=== PATIENT | female | born 1955 | race Caucasian/White ===

== ENCOUNTER 2019-09-19 07:12 | Inpatient (IN) | payer BC ==
[~2019-09-19] VITALS: Ht 165.1 cm; Wt 74.7 kg
[~2019-09-19 07:12] MED LIST: B Complex #11 EACH PO; BUSP10 PO; LEVSOD75 PO; MELA3 PO; OMEPRAZOLE MAGN20 MG PO; SERT100 PO
--- NOTE | 2019-09-19 09:25 | NUR ---
09/19/19 0925 Zahira Pressley 20ML NORMAL SALINE W/INDIGO CARMINE TO RAISE CECAL POLYP
--- NOTE | 2019-09-19 10:42 | NUR ---
09/19/19 1042 Zahira Pressley LATE ENTRY FOR TODAY AT 0925 PATIENT C/O PAIN, STATES THAT SHE NEEDS TO "PEE". BED [place] PLACED UNDER PATIENT. PATIENT UNABLE TO URINATE. DR. ESPAÑA AWARE. WILL CONTINUE TO MONITOR AND TAKE PATIENT BACK TO ROOM. DR. ESPAÑA INTO SPEAK WITH PATIENT. PATIENT C/O ABDOMINAL PAIN, ABDOMEN IS PAINFUL TO TOUCH. DR. ESPAÑA WILL ORDER STAT CT SCAN.
[2019-09-19] MEDS ORDERED: SERT100 PO (11:44)
--- NOTE | 2019-09-19 11:59 | NUR ---
ADMIT NOTE- PT ADMITTED TO PCU 12 FROM SURGERY CENTER IN WHEELCHAIR, ALERT, ORIENTED, COOPERATIVE, NO DISTRESS. STATES ABDOMEN DISCOMFORT PRESENT-RATES 1 ON SCALE. NO N/V. TAKING CLEAR LIQUIDS. SINUS WILL, BP STABLE. PIV INTACT. GIANFRANCO HATHAWAY RADIO MAINTAINER HERE. REVIEWED PLAN WITH PT. REVIEWED PICTURE OF POLST, FRIEND TO BRING IN. PT STATES DNR WITH LIMITED TREATMENT.
[2019-09-19 12:37] LABS: BASOPHILS ABSOLUTE AUTO 0.03 K/mm3 (0.00-0.23); BASOPHILS PERCENT AUTO 1 % (0-2); EOSINOPHILS ABSOLUTE AUTO 0.05 K/mm3 (0.00-0.68); EOSINOPHILS PERCENT AUTO 1 % (0-6); Hematocrit 37.5 % (33.0-51.0); Hemoglobin 12.8 g/dL (11.5-16.0); IMMATURE GRAN ABSOLUTE AUTO 0.02 K/mm3 (0.00-0.10); IMMATURE GRAN PERCENT AUTO 0 % (0-1); LYMPHOCYTES PERCENT AUTO 12 % (21-46); MONOCYTES ABSOLUTE AUTO 0.35 K/mm3 (0.16-1.47); MONOCYTES PERCENT AUTO 5 % (4-13); Mean Corpuscular HGB 31.7 pg (26.0-34.0); Mean Corpuscular HGB Conc 34.1 g/dL (31.5-36.5); Mean Corpuscular Volume 93 fL (80-100); Mean Platelet Volume 9.2 fL (9.1-12.4); NEUTROPHILS ABSOLUTE AUTO 5.41 K/mm3 (1.96-9.15); NEUTROPHILS PERCENT AUTO 81 % (41-73); Platelet Count 299 K/mm3 (150-400); RDW Coefficient Variation 12.8 % (11.7-14.2); RDW Standard Deviation 43.9 fL (35.1-46.3); Red Blood Cell Count 4.04 M/mm3 (3.80-5.20); White Blood Cell Count 6.66 K/mm3 (4.00-11.30)
--- NOTE | 2019-09-19 12:37 | NUR ---
PT WITH STABLE VSS. DENIES COMPLAINTS.
[2019-09-19 12:51] LABS: International Normalized Ratio 1.04; Prothrombin Time Results 11.1 Sec (9.7-11.5)
[2019-09-19 13:00] LABS: Alanine Aminotransfer (ALT/SGP 20 U/L (12-78); Albumin, Blood 3.6 g/dL (3.4-5.0); Albumin/Globulin Ratio 1.2 (0.8-1.8); Alk Phos 64 U/L (50-136); Anion Gap 8 mmol/L (6-16); Aspartate Aminotrans (AST/SGOT 10 U/L (12-37); Bilirubin, Total 0.9 mg/dL (0.1-1.0); Blood Urea Nitrogen 10 mg/dL (8-24); CO2, Blood 23 mmol/L (21-32); Calcium, Blood 8.4 mg/dL (8.5-10.1); Chloride, Blood 105 mmol/L (98-108); Creatinine, Blood 0.77 mg/dL (0.40-1.00); Glomerular Filtration Rate >60 (60-); Glucose, Blood 79 mg/dL (70-99); Potassium, Blood 3.9 mmol/L (3.5-5.5); Sodium, Blood 136 mmol/L (136-145); Total Protein, Blood 6.6 g/dL (6.4-8.2)
--- NOTE | 2019-09-19 14:08 | NUR ---
PT STATES JUST MIMINAL DISCOMFORT RIGHT ABDOMEN NOW-STATES NOT "EVEN A PAIN". DOZING, WATCHING TV
--- NOTE | 2019-09-19 14:28 | NUR ---
PERMISSION FOR CARE PATIENT GAVE STUDENT PERMISSION TO PROVIDE CARE ON 09/19/19.
--- NOTE | 2019-09-19 16:06 | NUR ---
PT UP TO BATHROOM, MORE PAIN AFTER ACTIVITY. ABDOMEN SOFT, NONTENDER WITH BOWEL SOUNDS. C/O GAS PAINS, RX GIVEN. NPO NOW, WILL CONTINUE TO MONITOR
--- NOTE | 2019-09-19 16:18 | NUR ---
PT INSISTENT TO GO OUTSIDE TO SMOKE. SURGICAL STATUS. IV DISCONNECTED
--- NOTE | 2019-09-19 16:45 | NUR ---
PT RETURN TO ROOM WITHOUT PROBLEMS. STATES FEELS BETTER -LESS ANXIOUS, STATES WAS ABLE TO BELCH. ABDOMEN REMAINS SOFT, NONTENDER TO TOUCH. NO N/V. NPO-TAKING SMALL AMOUNT ICE CHIPS. PIV INTACT
--- NOTE | 2019-09-19 18:31 | NUR ---
DR. ESPAÑA HERE-ASSESSED PT. CONTINUE TO MONITOR TONIGHT. DENIES PROBLEMS.
--- NOTE | 2019-09-19 19:45 | NUR ---
RECEIVED REPORT FROM SABIHA DEAN. ASSUMED CARE OF PT. IN NO ACUTE DISTRESS. RESTING IN BED COMFORTABLY AT THIS TIME. DENIES ANY PAIN OR NEEDS AT THIS TIME. WILL CONTINUE TO MONITOR.
--- NOTE | 2019-09-20 01:00 | NUR ---
PT REQUESTING TO GO OUTSIDE TO SMOKE. PT SIGNED WAIVER FORM AND IS AWARE OF RISKS OF GOING OUTSIDE WITHOUT SUPERVISION. INDICATED UNDERSTANDING.
--- NOTE | 2019-09-20 04:00 | NUR ---
PT OUTSIDE TO SMOKE.
[2019-09-20 04:13] LABS: BASOPHILS ABSOLUTE AUTO 0.03 K/mm3 (0.00-0.23); BASOPHILS PERCENT AUTO 0 % (0-2); EOSINOPHILS ABSOLUTE AUTO 0.08 K/mm3 (0.00-0.68); EOSINOPHILS PERCENT AUTO 1 % (0-6); Hematocrit 36.9 % (33.0-51.0); Hemoglobin 12.5 g/dL (11.5-16.0); IMMATURE GRAN ABSOLUTE AUTO 0.03 K/mm3 (0.00-0.10); IMMATURE GRAN PERCENT AUTO 0 % (0-1); LYMPHOCYTES ABSOLUTE AUTO 1.34 K/mm3 (0.84-5.20); LYMPHOCYTES PERCENT AUTO 19 % (21-46); MONOCYTES ABSOLUTE AUTO 0.52 K/mm3 (0.16-1.47); MONOCYTES PERCENT AUTO 7 % (4-13); Mean Corpuscular HGB 31.8 pg (26.0-34.0); Mean Corpuscular HGB Conc 33.9 g/dL (31.5-36.5); Mean Corpuscular Volume 94 fL (80-100); Mean Platelet Volume 9.2 fL (9.1-12.4); NEUTROPHILS ABSOLUTE AUTO 5.22 K/mm3 (1.96-9.15); NEUTROPHILS PERCENT AUTO 72 % (41-73); Platelet Count 289 K/mm3 (150-400); RDW Coefficient Variation 12.7 % (11.7-14.2); RDW Standard Deviation 44.1 fL (35.1-46.3); Red Blood Cell Count 3.93 M/mm3 (3.80-5.20); White Blood Cell Count 7.22 K/mm3 (4.00-11.30)
[2019-09-20 04:31] LABS: Alanine Aminotransfer (ALT/SGP 18 U/L (12-78); Albumin, Blood 3.4 g/dL (3.4-5.0); Albumin/Globulin Ratio 1.1 (0.8-1.8); Alk Phos 62 U/L (50-136); Anion Gap 9 mmol/L (6-16); Aspartate Aminotrans (AST/SGOT 13 U/L (12-37); Bilirubin, Total 1.8 mg/dL (0.1-1.0); Blood Urea Nitrogen 9 mg/dL (8-24); Bun/Creatinine Ratio 10.1 (12.0-20.0); CO2, Blood 21 mmol/L (21-32); Calcium, Blood 8.4 mg/dL (8.5-10.1); Chloride, Blood 109 mmol/L (98-108); Creatinine, Blood 0.89 mg/dL (0.40-1.00); Globulin, Blood 3.1 g/dL (2.2-4.0); Glomerular Filtration Rate >60 (60-); Glucose, Blood 69 mg/dL (70-99); Magnesium, Blood 1.7 mg/dL (1.6-2.4); Potassium, Blood 3.8 mmol/L (3.5-5.5); Sodium, Blood 139 mmol/L (136-145); Total Protein, Blood 6.5 g/dL (6.4-8.2)
--- NOTE | 2019-09-20 05:30 | NUR ---
PT BACK IN ROOM AT THIS TIME. RESTING COMFORTABLY.
--- NOTE | 2019-09-20 07:20 | NUR ---
PT RESTING IN BED COMFORTABLY, IN NO ACUTE DISTRESS. WAS MONITORED EVERY 1-2 HOURS WITH NEEDS MET. DENIES ANY NEEDS AT THIS TIME. CALL LIGHT AND POSSESSIONS IN REACH, BED IN LOW POSITION.
--- NOTE | 2019-09-20 09:55 | NUR ---
TRANSFER TO SURGICAL ROOM 228 PATIENT ALERT AND ORIENTED X4. RESP E/U ON ROOM AIR. PATIENT AMBULATES HALLS WELL AND INDEPENDENTLY. PATIENT DENIES ANY ABD PAIN. VSS. REPORTED TO OLIVIA COURTROOM REPORTER. PATIENT TRANSFERED FROM PCU 12 TO ROOM SURGICAL 228 AT 0900. AMBULATED OVER, BELONGINGS SENT WITH PATIENT.
--- NOTE | 2019-09-20 15:13 | NUR ---
SEVERE ABDOMINAL PAIN ENTERED ROOM AND FOUND PT GASPING IN PAIN. MEDICATED PER ORDERS W/25MCG FENTANYL WITH NO RELIEF. SAW DR TRACY IN [place] AND ASKED HIM TO ASSESS PT. ADMINISTERED ANOTHER 25 MCG FENTANYL PER ORDERS PT WAS WRITHING AND YELLING IN PAIN. PAIN BRIEFLY EASED TO 11/24. CONTACTED DR MADRIGAL WHO CAME TO ASSESS PT. PT HAD TENDERNESS IN ONE FOCAL AREA OF ABDOMEN. PT'S ABDOMEN FIRM. CT ORDERED STAT. PT'S PAIN RETURNED TO 04/26, ADMINISTERED ANOTHER 50 MCG FENTANYL PER ORDERS AND PLACED MSG OUT TO DR MADRIGAL. PT NOW IN CT.
[2019-09-20 15:35] LABS: BASOPHILS ABSOLUTE AUTO 0.02 K/mm3 (0.00-0.23); BASOPHILS PERCENT AUTO 0 % (0-2); EOSINOPHILS ABSOLUTE AUTO 0.11 K/mm3 (0.00-0.68); EOSINOPHILS PERCENT AUTO 2 % (0-6); Hematocrit 36.6 % (33.0-51.0); Hemoglobin 12.4 g/dL (11.5-16.0); IMMATURE GRAN ABSOLUTE AUTO 0.01 K/mm3 (0.00-0.10); IMMATURE GRAN PERCENT AUTO 0 % (0-1); LYMPHOCYTES ABSOLUTE AUTO 1.47 K/mm3 (0.84-5.20); LYMPHOCYTES PERCENT AUTO 22 % (21-46); MONOCYTES ABSOLUTE AUTO 0.48 K/mm3 (0.16-1.47); MONOCYTES PERCENT AUTO 7 % (4-13); Mean Corpuscular HGB 31.9 pg (26.0-34.0); Mean Corpuscular HGB Conc 33.9 g/dL (31.5-36.5); Mean Corpuscular Volume 94 fL (80-100); Mean Platelet Volume 9.3 fL (9.1-12.4); NEUTROPHILS ABSOLUTE AUTO 4.47 K/mm3 (1.96-9.15); NEUTROPHILS PERCENT AUTO 68 % (41-73); Platelet Count 286 K/mm3 (150-400); RDW Standard Deviation 44.6 fL (35.1-46.3); Red Blood Cell Count 3.89 M/mm3 (3.80-5.20); White Blood Cell Count 6.56 K/mm3 (4.00-11.30)
[2019-09-20 15:59] LABS: Alanine Aminotransfer (ALT/SGP 18 U/L (12-78); Albumin, Blood 3.5 g/dL (3.4-5.0); Albumin/Globulin Ratio 1.1 (0.8-1.8); Alk Phos 61 U/L (50-136); Anion Gap 8 mmol/L (6-16); Aspartate Aminotrans (AST/SGOT 14 U/L (12-37); Bilirubin, Total 1.5 mg/dL (0.1-1.0); Blood Urea Nitrogen 10 mg/dL (8-24); Bun/Creatinine Ratio 11.1 (12.0-20.0); CO2, Blood 21 mmol/L (21-32); Calcium, Blood 8.5 mg/dL (8.5-10.1); Chloride, Blood 110 mmol/L (98-108); Globulin, Blood 3.1 g/dL (2.2-4.0); Glomerular Filtration Rate >60 (60-); Glucose, Blood 86 mg/dL (70-99); Potassium, Blood 3.4 mmol/L (3.5-5.5); Sodium, Blood 139 mmol/L (136-145); Total Protein, Blood 6.6 g/dL (6.4-8.2)
--- NOTE | 2019-09-20 16:25 | NUR ---
pt to pre op
--- NOTE | 2019-09-20 16:25 | NUR ---
brother and sister in law took pt's purse per pt request.
--- NOTE | 2019-09-20 16:27 | NUR ---
INTO SDS. ELEVATED BP OTHER VITALS STABLE PATIEN TIN LOTS OF PAIN MOANING MOVING TURNING.
--- NOTE | 2019-09-20 20:10 | NUR ---
ARRIVE TO ICU 2 FORM OR PER BED. MONITOR PLACED SHOWING SINUS RHYTHM HEART RATE 90'S NONREBREATHER ND NASAL TRUMPET IN PLACE RESPIRATIONS 14/MIN SPO2 94% ABOMENIAL DRESSING INTACT MIDLINE LIANET DRAIN PATENT WITH SEROUS SANGOUS RETURN OF 60ML. AWAKENES TO VERBAL STIMULI ABLE TO FOLLOW COMMANDS . NASAL TUMPET REMOVED AT 2011. NON REBREATHER REMOVED AT 2029. SPPO2 MAINTAINING ABOVE 90% RESPRATIOONS REGULR AD EASY. CONTINUE TO MOITOR AND REPORT CHANGE IN PATIENT CONDITION
--- NOTE | 2019-09-20 21:07 | NUR ---
RESTS QUIETLY AWAKENS EASILY FOLLOWS COMMANDS . RESPIRATIONS EASY AND REGULAR ON ROOM AIR SPO2 94-97% ABD DRESSING DRY INTACT LIANET PATENT DRAINING S/S DUMONT WELL CONTINUE TO MONIITOR AND REPORT CHANGE IN PATIENT CONDITION
--- NOTE | 2019-09-20 21:15 | NUR ---
REPORT CALLED TO ANGELITO LANDIS ACCEPTING RN
--- NOTE | 2019-09-20 21:30 | NUR ---
PER BED TO ROOM 228. MONITOR INTACT SHOWING SINUS RHYTHM/SINUS WILL. HEART RATE 57-80'S. AROUSES TO VERBAL STIMULI. FOLLOWS COMMANDS. RESPIRATIONS REGULAR AND EASY ON ROOM AIR SPO2 GREATER THAN 90%. ABD DRESSING DRY/INTACT. LIANET PATENT WITH S/S/ RETURN . DUMONT WELL IN BED TOLERATED TRANSFER WELL
--- NOTE | 2019-09-20 22:07 | NUR ---
RECIEVED REPORT FROM CARROLL DISPLAY FABRICATION SUPERVISOR AT 2120 PT TO ROOM 213
--- NOTE | 2019-09-20 22:14 | NUR ---
RECIEVED PERMISSION FROM PT TO CALL DAUGHTER ALFA AND GIVE STATUS UPDATE. CALLED AT 0 AND SPOKE WITH ALFA.
--- NOTE | 2019-09-21 01:09 | NUR ---
DRESSING TO MIDLINE C/D/I HAD APPROX QUARTER SIZED BLOODY SPOT ON IT OTHERWISE NORMAL. LIANET DRAIN OBTAINED 40ML SEROSANGUINES FLUID. VSS. NO ACUTE CHANGES NOTED SINCE PT BROUGHT TO ROOM FROM SURG.
--- NOTE | 2019-09-21 01:37 | NUR ---
TANNING CONSULTANT SET UP AND PT EDUCATED ON USE.
[2019-09-21 04:34] LABS: BASOPHILS ABSOLUTE AUTO 0.02 K/mm3 (0.00-0.23); BASOPHILS PERCENT AUTO 0 % (0-2); EOSINOPHILS PERCENT AUTO 0 % (0-6); Hematocrit 37.4 % (33.0-51.0); Hemoglobin 12.7 g/dL (11.5-16.0); IMMATURE GRAN ABSOLUTE AUTO 0.03 K/mm3 (0.00-0.10); IMMATURE GRAN PERCENT AUTO 0 % (0-1); LYMPHOCYTES ABSOLUTE AUTO 0.23 K/mm3 (0.84-5.20); LYMPHOCYTES PERCENT AUTO 2 % (21-46); MONOCYTES ABSOLUTE AUTO 0.39 K/mm3 (0.16-1.47); MONOCYTES PERCENT AUTO 3 % (4-13); Mean Corpuscular HGB 31.9 pg (26.0-34.0); Mean Corpuscular Volume 94 fL (80-100); NEUTROPHILS ABSOLUTE AUTO 11.16 K/mm3 (1.96-9.15); NEUTROPHILS PERCENT AUTO 94 % (41-73); Platelet Count 289 K/mm3 (150-400); RDW Standard Deviation 44.9 fL (35.1-46.3); Red Blood Cell Count 3.98 M/mm3 (3.80-5.20); White Blood Cell Count 11.83 K/mm3 (4.00-11.30)
[2019-09-21 04:57] LABS: Anion Gap 11 mmol/L (6-16); Blood Urea Nitrogen 7 mg/dL (8-24); Bun/Creatinine Ratio 9.2 (12.0-20.0); CO2, Blood 19 mmol/L (21-32); Calcium, Blood 8.1 mg/dL (8.5-10.1); Chloride, Blood 108 mmol/L (98-108); Creatinine, Blood 0.76 mg/dL (0.40-1.00); Glomerular Filtration Rate >60 (60-); Glucose, Blood 125 mg/dL (70-99); Potassium, Blood 3.8 mmol/L (3.5-5.5); Sodium, Blood 138 mmol/L (136-145)
--- NOTE | 2019-09-21 07:32 | NUR ---
NOC SHIFT SUMMARY SEE PREVIOUS NOTES. PT IS AAOX4, RESP EVEN AND UNLABORED, PLEASANT AND COOPERATIVE. POST OP FOR BOWEL PERF REPAIR. PCI IN PLACE AND PT TAUGHT HOW TO USE. DRESSING REMAINS C/D/I. NO ACUTE CHANGES NOTED. REPORT TO ONCOMING RN.
--- NOTE | 2019-09-21 07:50 | NUR ---
dr tuttle by to see pt souza cath removed is/tcdb with demonstration pt also given chapstick for dry mouth and ice chips pt worried about taking in juice pt stated that pain is ok if she uses the farm management supervisor but when she dozes it gets bad pt has small amt serosang drainage to dressing midline denise wound vac absent bt's pt stomach was growling
--- NOTE | 2019-09-21 09:22 | NUR ---
meds given with sip of water no nausea with ice chips no urge to void yet
--- NOTE | 2019-09-21 10:45 | NUR ---
dr montes by to see pt
--- NOTE | 2019-09-21 12:01 | NUR ---
OOB TO BATHROOM TO VOID WITH STANDBY ASSIST BACK TO BED 50 MCG FENT GIVEN BEFOR FOR PAIN 02/23 IVP
--- NOTE | 2019-09-21 17:43 | NUR ---
OOB TO BATHROOM TO VOID AGAIN PT HAS DK SABIHA URINE ONLY TAKING SMALL AMTS OF ICE CHIPS DENIES NAUSEA
--- NOTE | 2019-09-21 19:00 | NUR ---
IVP FENT 25MCG FOR ADD PAIN CONTROL OVERALL PT STATED THIS HAS HELPED FIRST TWO DOSE WE USED 50 MCG VS 25 WE DID NEED TO USE 2 L NC
[2019-09-22 04:41] LABS: BASOPHILS ABSOLUTE AUTO 0.02 K/mm3 (0.00-0.23); BASOPHILS PERCENT AUTO 0 % (0-2); EOSINOPHILS ABSOLUTE AUTO 0.04 K/mm3 (0.00-0.68); EOSINOPHILS PERCENT AUTO 0 % (0-6); Hematocrit 35.4 % (33.0-51.0); Hemoglobin 11.6 g/dL (11.5-16.0); IMMATURE GRAN ABSOLUTE AUTO 0.02 K/mm3 (0.00-0.10); IMMATURE GRAN PERCENT AUTO 0 % (0-1); LYMPHOCYTES ABSOLUTE AUTO 0.77 K/mm3 (0.84-5.20); LYMPHOCYTES PERCENT AUTO 8 % (21-46); MONOCYTES ABSOLUTE AUTO 0.52 K/mm3 (0.16-1.47); MONOCYTES PERCENT AUTO 6 % (4-13); Mean Corpuscular HGB 31.1 pg (26.0-34.0); Mean Corpuscular HGB Conc 32.8 g/dL (31.5-36.5); Mean Corpuscular Volume 95 fL (80-100); Mean Platelet Volume 9.3 fL (9.1-12.4); NEUTROPHILS ABSOLUTE AUTO 7.94 K/mm3 (1.96-9.15); NEUTROPHILS PERCENT AUTO 85 % (41-73); Platelet Count 283 K/mm3 (150-400); RDW Coefficient Variation 13.2 % (11.7-14.2); Red Blood Cell Count 3.73 M/mm3 (3.80-5.20); White Blood Cell Count 9.31 K/mm3 (4.00-11.30)
[2019-09-22 05:00] LABS: Alanine Aminotransfer (ALT/SGP 16 U/L (12-78); Albumin, Blood 2.5 g/dL (3.4-5.0); Albumin/Globulin Ratio 0.7 (0.8-1.8); Alk Phos 48 U/L (50-136); Anion Gap 7 mmol/L (6-16); Aspartate Aminotrans (AST/SGOT 10 U/L (12-37); Bilirubin, Total 0.7 mg/dL (0.1-1.0); Blood Urea Nitrogen 9 mg/dL (8-24); Bun/Creatinine Ratio 12.1 (12.0-20.0); CO2, Blood 25 mmol/L (21-32); Calcium, Blood 8.2 mg/dL (8.5-10.1); Chloride, Blood 108 mmol/L (98-108); Creatinine, Blood 0.74 mg/dL (0.40-1.00); Globulin, Blood 3.5 g/dL (2.2-4.0); Glomerular Filtration Rate >60 (60-); Glucose, Blood 94 mg/dL (70-99); Potassium, Blood 3.9 mmol/L (3.5-5.5); Sodium, Blood 140 mmol/L (136-145)
--- NOTE | 2019-09-22 06:35 | NUR ---
SHIFT SUMMARY: AKHIL RESTED COMFORTABLY FOR THE MAJORITY OF THE NIGHT. SHE IS A ONE PERSON ASSIST TO THE BATHROOM. SHE DENIES ANY DIFFICULTY URINATING BUT DENIES HAVING PASSED FLATUS OR HAD A BM YET. SHE IS NPO, ONLY TAKING IN MEDICATIONS AND SMALL AMOUNTS OF ICE CHIPS. SHE IS ABLE TO MAKE HER NEEDS KNOWN. LIANET DRAIN PATENT, DRAINING SS FLUID. TELEMETRY IN PLACE. OXYGEN SATURATION MAINTAINING BETWEEN 90 AND 92% ORA THIS MORNING. DEEP BREATHING AND IS ENCOURAGED. SHE REPORTS THAT SHE DOES BREATHING EXERCISES AT HOME AND HAS BEEN DOING THEM WHILE LYING IN BED HERE. SHE USES HER CALL LIGHT APPROPRIATELY. 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 SHE IS LYING ON HER BACK IN BED STATING THAT IT HURTS TOO MUCH TO SIT UP. WILL REPORT TO ONCOMING RN.
--- NOTE | 2019-09-22 16:27 | NUR ---
SHIFT SUMMARY PT DOING BETTER THIS EVENING. FENTANYL WOODS RIDER DC'D TODAY AND PT STARTED ON ORAL OXYCODONE AND SCHEDULED TYLENOL. MEDICATED WITH 1X DOSE OF IVP FENTANYL FOR BREAKTHROUGH PAIN. PT REPORTS PAIN MORE TOLERABLE THIS EVENING. SLOWLY TOMMIE CLEAR LIQ DIET BUT HASN'T HAD MUCH OF AN APPETITE. PT DENIES PASSING GAS. BTS ARE PRESENT. MIDLINE INCISION REMAINS UNCHANGED SINCE START OF SHIFT. ENCOURAGING AND PLANNING TO AMBULATE THIS EVENING. UP TO RESTROOM 1 SBA. IVF + ABX INFUSING PER ORDERS. PT USING CALL LIGHT APPROPRIATELY.
--- NOTE | 2019-09-23 06:46 | NUR ---
SHIFT SUMMARY: AKHIL RESTED COMFORTABLY FOR MOST OF THE NIGHT. SHE DID HAVE AN EPISODE WHEN HER OXYGEN SATURATION DROPPED TO 88/89% ORA. SHE USED HER INCENTIVE SPIROMETER WELL DB&C WITHOUT IMPROVEMENT. O2 VIA NC WAS PLACED AT 1.5 LPM WHICH IMPROVED HER SATURATIONS TO 94%. SHE HAS BEEN TITRATED BACK TO ROOM AIR AT THIS TIME. CONTINUOUS PULSE OX IN PLACE. IV TO R AC PATENT. SHE REPORTS ADEQUATE PAIN CONTROL WITH ORAL PAIN MEDICATIONS. SHE IS ABLE TO MAKE HER NEEDS KNOWN. SHE IS LYING IN BED WITH HER CALL LIGHT IN REACH. WILL REPORT TO DAY SHIFT RN.
--- NOTE | 2019-09-23 14:50 | NUR ---
SUMMARY PT CONT TO DO WELL T/O SHIFT. ORAL PAIN MEDICATIONS NEEDED. ENCOURAGING AMBULATION. PT SLOWLY TOMMIE CLEAR LIQ DIET. DENIES PASSING GAS. MIDLINE JOESPH DRESSING REMAINS DRY AND INTACT. LIANET WITH YELLOW COLORED DRAINAGE. IVF PER ORDERS. PT REPORTS FEELING BETTER TODAY THAN SHE DID YESTERDAY. USES CALL LIGHT APPROPRIATELY.
--- NOTE | 2019-09-23 15:26 | NUR ---
ASSUMED CARE AT THIS TIME
--- NOTE | 2019-09-23 18:34 | NUR ---
SUMMARY: NO ACUTE CHANGE SINCE ASSUMED PT CARE. VSS, A/O. SURGICAL SITE WNL AND LIANET DRAIN EMPTIED X1. PT UP IN ROOM INDEPENDENTLY. PAIN SEEMS TO BE WELL MANAGED PER EMAR. NO SAFETY CONCERNS AT THIS TIME. WILL REPORT TO JONE LANDIS.
--- NOTE | 2019-09-24 06:45 | NUR ---
SHIFT SUMMARY PT A/OX4 WITH VSS. JOESPH TO MIDLINE IN PLACE WITH NO NEW DRAINAGE NOTED. LIANET DRAINING YELLOW FLUID WITH DRESSING C.D.I. PT IND IN ROOM. HAD 1 LARGE LIQUID BM. PAIN MANAGED WITH IV FENT AND REPOSITIONING. DENIES N/V AND TOLERATING CL. CURRENTLY RESTING IN BED WITH CALL LIGHT IN HAND. WILL CONT TO MONITOR AND GIVE REPORT TO ONCOMING RN.
--- NOTE | 2019-09-24 16:05 | NUR ---
DISCUSSED PT'S BP W/DR PARHAM NO NEW ORDERS AT THIS TIME.
--- NOTE | 2019-09-24 17:11 | NUR ---
SUMMARY NO ACUTE CHANGES T/O SHIFT. ADVANCED DIET TO FULL LIQUIDS. PT HAS HAD ONE PUDDING WHICH TOOK VERY SLOWLY. TOLERATING WELL AT THIS TIME. PAIN CONTROLLED PER ORDERS. MEDICATED ONCE DURING SHIFT FOR NAUSEA. PT INDEPENDENT IN ROOM. IV FLUIDS INFUSING W/O DIFFICULTY.
--- NOTE | 2019-09-25 04:31 | NUR ---
SHIFT SUMMARY PT STATES SHE HAD A GOOD NIGHT AND WAS ABLE TO SLEEP SOME. DENIED NEED FOR PAIN MEDICATION OR HAVING N/V. REPORTS TOLERATING DIET. JOESPH TO MIDLINE IN PLACE WITH NO NEW DRAINAGE NOTED. LIAENT DRAINING YELLOW FLUID W/ DRESSING C/D/I. HAS IVF RUNNING PER ORDERS. IND IN ROOM. IS CURRENTLY RESTING IN BED WATCHING TV. WILL CONT TO MONITOR AND GIVE REPORT TO ONCOMING RN.
[2019-09-25 15:03] LABS: BASOPHILS ABSOLUTE AUTO 0.03 K/mm3 (0.00-0.23); BASOPHILS PERCENT AUTO 1 % (0-2); EOSINOPHILS ABSOLUTE AUTO 0.07 K/mm3 (0.00-0.68); EOSINOPHILS PERCENT AUTO 1 % (0-6); Hematocrit 39.8 % (33.0-51.0); Hemoglobin 13.4 g/dL (11.5-16.0); IMMATURE GRAN ABSOLUTE AUTO 0.01 K/mm3 (0.00-0.10); IMMATURE GRAN PERCENT AUTO 0 % (0-1); LYMPHOCYTES ABSOLUTE AUTO 0.91 K/mm3 (0.84-5.20); LYMPHOCYTES PERCENT AUTO 17 % (21-46); MONOCYTES ABSOLUTE AUTO 0.41 K/mm3 (0.16-1.47); MONOCYTES PERCENT AUTO 8 % (4-13); Mean Corpuscular HGB 31.5 pg (26.0-34.0); Mean Corpuscular HGB Conc 33.7 g/dL (31.5-36.5); Mean Corpuscular Volume 94 fL (80-100); Mean Platelet Volume 8.7 fL (9.1-12.4); NEUTROPHILS ABSOLUTE AUTO 4.04 K/mm3 (1.96-9.15); NEUTROPHILS PERCENT AUTO 74 % (41-73); Platelet Count 416 K/mm3 (150-400); RDW Coefficient Variation 12.5 % (11.7-14.2); RDW Standard Deviation 42.9 fL (35.1-46.3); Red Blood Cell Count 4.25 M/mm3 (3.80-5.20); White Blood Cell Count 5.47 K/mm3 (4.00-11.30)
[2019-09-25 15:16] LABS: Albumin, Blood 2.7 g/dL (3.4-5.0); Anion Gap 6 mmol/L (6-16); Blood Urea Nitrogen 5 mg/dL (8-24); Bun/Creatinine Ratio 7.2 (12.0-20.0); CO2, Blood 30 mmol/L (21-32); Calcium, Blood 8.9 mg/dL (8.5-10.1); Chloride, Blood 102 mmol/L (98-108); Glomerular Filtration Rate >60 (60-); Glucose, Blood 89 mg/dL (70-99); Magnesium, Blood 1.6 mg/dL (1.6-2.4); Phosphorus, Blood 4.7 mg/dL (2.5-4.9); Potassium, Blood 3.6 mmol/L (3.5-5.5); Sodium, Blood 138 mmol/L (136-145)
--- NOTE | 2019-09-25 15:22 | NUR ---
v tach AT APPROXIMATELY 1330, TELE CALLED TO REPORT PT HAD 17 BEAT RUN OF VTACH. WHEN CHECKED ON PT, FOUND SLEEPING IN NO APPARENT DISTRESS. VSS. NOTIFIED DR PARHAM. ORDERS OBTAINED. ADMINISTERED CARVEDILOL PER ORDERS.
--- NOTE | 2019-09-25 17:01 | NUR ---
SUMMARY PT HAD BM THIS SHIFT. INDEPENDENT IN ROOM. HAD 17 BEAT RUN OF V TACH WHILE SLEEPING. NOTIFIED DR PARHAM, NEW ORDERS OBTAINED. MEDICATED PT DURING SHIFT PER ORDERS FOR PAIN. PT AMBULATED IN HALLS. PLEASANT AND COOPERATIVE.
[2019-09-26 04:25] LABS: BASOPHILS ABSOLUTE AUTO 0.02 K/mm3 (0.00-0.23); BASOPHILS PERCENT AUTO 0 % (0-2); EOSINOPHILS ABSOLUTE AUTO 0.16 K/mm3 (0.00-0.68); EOSINOPHILS PERCENT AUTO 4 % (0-6); Hematocrit 36.9 % (33.0-51.0); Hemoglobin 12.4 g/dL (11.5-16.0); IMMATURE GRAN ABSOLUTE AUTO 0.02 K/mm3 (0.00-0.10); IMMATURE GRAN PERCENT AUTO 0 % (0-1); LYMPHOCYTES ABSOLUTE AUTO 0.89 K/mm3 (0.84-5.20); LYMPHOCYTES PERCENT AUTO 20 % (21-46); MONOCYTES ABSOLUTE AUTO 0.47 K/mm3 (0.16-1.47); MONOCYTES PERCENT AUTO 11 % (4-13); Mean Corpuscular HGB 31.3 pg (26.0-34.0); Mean Corpuscular HGB Conc 33.6 g/dL (31.5-36.5); Mean Corpuscular Volume 93 fL (80-100); Mean Platelet Volume 8.7 fL (9.1-12.4); NEUTROPHILS PERCENT AUTO 65 % (41-73); Platelet Count 380 K/mm3 (150-400); RDW Coefficient Variation 12.5 % (11.7-14.2); RDW Standard Deviation 43.3 fL (35.1-46.3); Red Blood Cell Count 3.96 M/mm3 (3.80-5.20); White Blood Cell Count 4.46 K/mm3 (4.00-11.30)
[2019-09-26 04:46] LABS: Alanine Aminotransfer (ALT/SGP 12 U/L (12-78); Albumin, Blood 2.5 g/dL (3.4-5.0); Albumin/Globulin Ratio 0.7 (0.8-1.8); Alk Phos 45 U/L (50-136); Anion Gap 7 mmol/L (6-16); Aspartate Aminotrans (AST/SGOT 14 U/L (12-37); Bilirubin, Total 0.5 mg/dL (0.1-1.0); Blood Urea Nitrogen 5 mg/dL (8-24); Bun/Creatinine Ratio 7.3 (12.0-20.0); CO2, Blood 30 mmol/L (21-32); Calcium, Blood 8.6 mg/dL (8.5-10.1); Chloride, Blood 101 mmol/L (98-108); Creatinine, Blood 0.68 mg/dL (0.40-1.00); Globulin, Blood 3.5 g/dL (2.2-4.0); Glomerular Filtration Rate >60 (60-); Glucose, Blood 100 mg/dL (70-99); Potassium, Blood 3.2 mmol/L (3.5-5.5); Sodium, Blood 138 mmol/L (136-145)
[2019-09-26] MEDS ORDERED: CARV6.25 PO (13:05)
[2019-09-26] MEDS ORDERED: ACET325 PO (13:05)
[2019-09-26] MEDS ORDERED: OMEP20ER PO (13:06)
[2019-09-26] MEDS ORDERED: ROXICODONE5 MG PO (13:06)
[2019-09-26] MEDS ORDERED: POTA10T PO (13:07)
--- NOTE | 2019-09-26 13:40 | NUR ---
DISCHARGE PT DISCHARGED HOME FROM UNIT AT APROX 1330. PT GIVEN WRITTEN AND VERBAL DISCHARGE INSTRUCTIONS AND VERBALIZED UNDERSTANDING OF THESE INSTRUCTIONS. WRITTEN RX FOR PAIN MEDICATION GIVEN TO PT OTHER NEW RX'S FAXED TO [facility] IN [place].
== END 2019-09-26 13:29 | disposition home or self-care (01) | DRG 329 ==
LOC: ORSCSDS 07:12 → SURS 11:02 → PCU 11:02 → SURS 09-20 09:25
PROVIDERS: Family Medicine; Internal Medicine Gastroenterology; Nurse Practitioner Acute Care; Surgery; ADMIT Internal Medicine Gastroenterology
PROC: 0DBH8ZZ Excision of Cecum, Via Natural or Artificial Opening Endoscopic (ICD-10-PCS; 2019-09-19)
PROC: 0DBL8ZZ Excision of Transverse Colon, Via Natural or Artificial Opening Endoscopic (ICD-10-PCS; principal; 2019-09-19 08:30)
PROC: 0DTF0ZZ Resection of Right Large Intestine, Open Approach (ICD-10-PCS; 2019-09-20)
DX: K35.32 Acute appendicitis with perforation, localized peritonitis, and gangrene, without abscess (principal); K66.1 Hemoperitoneum; I47.2 Ventricular tachycardia; K21.9 Gastro-esophageal reflux disease without esophagitis; K66.8 Other specified disorders of peritoneum; E03.9 Hypothyroidism, unspecified; F32.9 Major depressive disorder, single episode, unspecified; F17.210 Nicotine dependence, cigarettes, uncomplicated; K64.4 Residual hemorrhoidal skin tags; K64.8 Other hemorrhoids; D12.6 Benign neoplasm of colon, unspecified
CPT/HCPCS: 36415; 74176; 74177; 80048; 80053; 80069; 83735; 85025; 85610; 88305; 88307; 94762; A9270; C9113; J0330; J1100; J1650; J1885; J2250; J2405; J2543; J2704; J3010; J7030; J7120; Q9967

== ENCOUNTER → 2019-10-17 | Outpatient (CLI) | payer BC ==
[~2019-10-17] MED LIST changes: +ACET325 PO; +CARV6.25 PO; +OMEP20ER PO; +POTA10T PO; +ROXICODONE5 MG PO
== END | disposition home or self-care (01) ==
LOC: LAB EV 12:25 → LAB SHORT 12:25
DX: R10.9 Unspecified abdominal pain (principal)
CPT/HCPCS: 87086

== ENCOUNTER → 2019-10-20 | Outpatient (CLI) | payer BC ==
[2019-10-20 16:04] LABS: Microalbumin, Urine Quant. <5.000 mg/L (0.000-20.000); Protein, Urine Quantitative <5.0 mg/dL (0.0-11.9)
== END | disposition home or self-care (01) ==
LOC: OLS 13:00 → LAB SHORT 13:00
PROVIDERS: Internal Medicine Nephrology
DX: N18.2 Chronic kidney disease, stage 2 (mild) (principal); D63.1 Anemia in chronic kidney disease; N25.81 Secondary hyperparathyroidism of renal origin; E55.9 Vitamin D deficiency, unspecified; E78.00 Pure hypercholesterolemia, unspecified; R76.9 Abnormal immunological finding in serum, unspecified; R94.5 Abnormal results of liver function studies; G60.9 Hereditary and idiopathic neuropathy, unspecified
CPT/HCPCS: 81050; 82043; 82570; 84156

== ENCOUNTER 2023-10-02 08:22 | Day surgery (SDC) | payer MEDICARE, BC ==
[~2023-10-02] VITALS: Ht 167.6 cm; Wt 68.0 kg
[~2023-10-02 08:22] MED LIST changes: +AMOX250; +BENZ100A PO; +IBUP600 PO; +LORA.5; +Lactated Ringer's 1,000 ML IV ONE; +Lidocaine HCl/Pf 1% 5 ML VIAL ONE; +VITAMIN D310 MC4; +propofoL 50 ML IV ONE
[2023-10-02] MEDS ORDERED: DEXT30SU (08:54)
[2023-10-02] MEDS ORDERED: Vitamin C100 M1 (08:54)
[2023-10-02] MEDS ORDERED: VITAMIN B-625 MG (08:55)
[2023-10-02] MEDS ORDERED: Lactated Ringer's 1,000 ML IV ONE (09:43)
[2023-10-02] MEDS ORDERED: propofoL 50 ML IV ONE (10:46)
[2023-10-02 11:15] VITALS: BP 115/88
== END 2023-10-02 11:22 | disposition home or self-care (01) ==
LOC: ORSCSDS 08:22
PROVIDERS: Internal Medicine Gastroenterology
PROC: 0DBL8ZX Excision of Transverse Colon, Via Natural or Artificial Opening Endoscopic, Diagnostic (ICD-10-PCS; principal; 2023-10-02 09:45)
DX: D12.6 Benign neoplasm of colon, unspecified (principal); Z86.010 Personal history of colon polyps; K64.4 Residual hemorrhoidal skin tags; Z83.719 Family history of colon polyps, unspecified; Z79.899 Other long term (current) drug therapy
CPT/HCPCS: 88305; J2001; J2704; J7120